=== PATIENT | male | born 1945 | race Caucasian/White ===

== ENCOUNTER 2017-04-26 13:52 | Observation (INO) | payer MEDICARE, BC ==
[~2017-04-26] VITALS: Ht 165.1 cm; Wt 75.0 kg
--- NOTE | ~2017-04-26 | HP ---
PATIENT'S NAME: BOO [facility] AGE: 72 Y [address] ROOM: [place] [address] LOCATION: GICU ADMIT DATE: 04/26/2017 History & Physical DISCHARGE DATE: FAMILY PHYSICIAN: MIHAI RITCHIE MD ATTENDING PHYSICIAN: CARMELLA POSADAS DATE OF SERVICE: CHIEF COMPLAINT: Syncope. HISTORY OF PRESENT ILLNESS: A 72-year-old very pleasant gentleman with past medical history of coronary artery disease with stenting done in the past by Dr. Major; also had mild early-onset dementia, followed by Dr. Carmona, was in [place] for an appointment with Dr. Carmona. He did not have any breakfast this morning and after that point, he went to get some breakfast. After the breakfast, he stood up and after 5 minutes, he had a syncopal episode which was witnessed. He was lowered down, so he did not fall and did not hit his head. He did lose consciousness at that point, which returned after about 30 seconds to 1 minute. He was brought to the emergency department. On my encounter, he is alert, oriented, and lying comfortably. He denied any headache, any trouble with the eyes, any chest pain along with this dizziness. He denied any diaphoresis, nausea, or vomiting. Currently, he is not having any chest pain, any shortness of breath, any abdominal pain, any burning on urination, or any extremity swelling. On further inquiry, it appears that he has not been drinking enough water in the last couple of days. He never had these kind of symptoms before. REVIEW OF SYSTEMS: All other systems reviewed were negative, except what is mentioned in the HPI. ALLERGIES: NO KNOWN DRUG ALLERGIES. PAST MEDICAL HISTORY: 1. Coronary artery disease. 2. Mild dementia. 3. Hypertension. MEDICATIONS: Medications are being reconciled right now. SOCIAL HISTORY: Never smoker. No alcohol or drug abuse. Retired. PATIENT'S NAME: BOO [facility] AGE: 72 Y [address] ROOM: [place] [address] LOCATION: GICU ADMIT DATE: 04/26/2017 History & Physical DISCHARGE DATE: FAMILY PHYSICIAN: MIHAI RITCHIE MD ATTENDING PHYSICIAN: CARMELLA POSADAS FAMILY HISTORY: Positive for coronary artery disease in dad, but no premature coronary artery disease. PHYSICAL EXAMINATION: VITAL SIGNS: Blood pressure 157/64, heart rate 46, respiratory rate of 12, afebrile. GENERAL: No acute distress. Alert and oriented x3. HEENT: Head: Atraumatic, normocephalic. Eyes: Nonicteric. No pallor. Oropharynx: Dry mucous membranes. CARDIOVASCULAR: S1, S2. No murmurs, gallops, or rubs. LUNGS: Clear to auscultation bilaterally. ABDOMEN: Soft, nontender, and nondistended. Bowel sounds are present. EXTREMITIES: No clubbing, cyanosis, or edema. NEUROLOGIC: Cranial nerves 2 through 12 intact. No motor or sensory deficits. PSYCHIATRIC: Normal affect, mood, and speech. MUSCULOSKELETAL: No muscle tenderness or joint swelling noted. ENDOCRINE: No lymphadenopathy, thyromegaly, or cushingoid features noted. LYMPHATIC: No lymphadenopathy noted. DIAGNOSTIC STUDIES: EKG done in the emergency department showed sinus bradycardia without acute ST- T wave changes. When compared to the previous EKG, he also had bradycardia at that point as well. Lab work was remarkable for sodium of 143, potassium of 3.8, and creatinine of 1.5. CBC was unremarkable. First set of troponins was negative. CT of the head was done, which was negative. ASSESSMENT AND PLAN: 1. Syncope. 2. Coronary artery disease. 3. Acute kidney injury. 4. Dementia. 5. Hypertension. 6. Hypokalemia. We are going to admit this patient for observation. His syncopal episode is PATIENT'S NAME: CORBIN HADDAD [facility] AGE: 72 Y [address] ROOM: [id number] [place] [id number] LOCATION: [facility] ADMIT DATE: 04/26/2017 History & Physical DISCHARGE DATE: FAMILY PHYSICIAN: MIHAI RITCHIE MD ATTENDING PHYSICIAN: CARMELLA POSADAS very consistent regarding dehydration as his orthostatic vitals were positive in the emergency department. He has already received 500 mL of normal saline. We are going to continue to hydrate him at this point. We are going to rule him out for ACS. Continue telemonitoring. His KRISHNA is also suggestive of dehydration, so we will monitor the creatinine once the hydration is done. Fall precautions for now. We will re-order the orthostatics and if stable, we will increase the activity to as tolerated and see his progress. If needed, we will involve Cardiology to figure out if the bradycardia is contributing to his syncopal episode. But again, I believe this is secondary to his dehydration. DVT prophylaxis: Early ambulation and SCDs. Diet: Low-sodium diet. We will follow this patient. MD ARIEL UNGER/piter /[id number] D: [id number] T: [id number] HISTORY & PHYSICAL
--- NOTE | ~2017-04-26 | ER ---
PATIENT'S NAME: CORBIN HADDAD [facility] AGE: 72 Y [address] ROOM: [place] [address] LOCATION: [facility] ADMIT DATE: 04/26/2017 ER/Outpatient Report DISCHARGE DATE: FAMILY PHYSICIAN: MIHAI RITCHIE MD ATTENDING PHYSICIAN: CARMELLA NARANJO TIME OF ARRIVAL: 1352 hours. TIME SEEN: 1352 hours. IDENTIFICATION: A 72-year-old male. CHIEF COMPLAINT: Syncopal episode. HISTORY OF PRESENT ILLNESS: The patient is a 72-year-old white male from [place], [place]. He was here for an appointment with Dr. Carmona this morning. He came fasting to the appointment with a followup for his dementia and afterwards they went to [place] and ate, when they got up to leave they saw some friends they knew from [place] and were talking with them while the was paying, and he had a syncopal episode. They lowered him to the seat so no fall or injury. He denies any chest pain. Currently, denies any problems. No lightheadedness or dizziness. No numbness or tingling. ALLERGIES: NO KNOWN DRUG ALLERGIES. CURRENT MEDICATIONS: 1. Levothyroxine 75 mcg daily. 2. Amlodipine 5 mg daily. 3. Tamsulosin 0.4 mg daily. 4. Memantine 10 mg b.i.d. 5. Baby aspirin daily. 6. Benefiber 1 rounded tablespoon daily. 7. Fluticasone nasal spray 2 sprays to each nostril daily. 8. Atorvastatin 10 mg at h.s. 9. Aricept 10 mg at h.s. 10. Zyrtec. 11. MiraLAX 1 capful every 3rd day and Colace 100 mg the other 2 days. 12. Vitamin E 1000 international units 3 times daily. 13. Fish oil 1000 mg 4 times daily. PATIENT'S NAME: BOO [facility] AGE: 72 Y [address] ROOM: [id number] [place] [id number] LOCATION: [facility] ADMIT DATE: 04/26/2017 ER/Outpatient Report DISCHARGE DATE: FAMILY PHYSICIAN: MIHAI RITCHIE MD ATTENDING PHYSICIAN: CARMELLA NARANJO MEDICAL PROBLEMS: Coronary artery disease, status post stent in 2007, hypertension, and dementia. FAMILY HISTORY: No pertinent family history. SOCIAL HISTORY: The patient lives in [place] with his . 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 Tobacco use, denies. Alcohol use, denies. Drug use, denies. REVIEW OF SYSTEMS: All systems reviewed and negative other than what is noted in the HPI. PHYSICAL EXAMINATION: VITAL SIGNS: Weight 79 kg. Blood pressure 140/70, pulse 54, respirations 14, temp 98.1, and sats 93% on room air. GENERAL: A 72-year-old male in no acute distress. HEENT: Head: Normocephalic, atraumatic. Eyes: Pupils equal and reactive to light and accommodation. Extraocular movements intact. Nose: Mucosa pink. No lesions or drainage. Mouth: No lesions. Pharynx benign. NECK: Supple. No lymphadenopathy. No thyromegaly. No JVD. No carotid bruits. LUNGS: Clear to auscultation. HEART: Sinus bradycardia. No murmur, rub, or gallop. ABDOMEN: Bowel sounds present. Soft, nondistended. No hepatosplenomegaly. No palpable masses. Nontender. SKIN: [place], warm, and dry. No lesions or rashes noted. NEURO: Alert and oriented to person and place. Cranial nerves 2 through 12 are grossly intact. Motor strength 5/5 throughout. Sensation is intact to light touch. The patient does not know the month or the year, he does know his age, and he is able to answer most questions. EMERGENCY DEPARTMENT COURSE: Orthostatic blood pressures were checked and are 147/71, pulse 49, standing 106/71, pulse 79, and he was lightheaded with this. He was given a 500 mL fluid bolus, blood pressure was then 137/64, heart rate 44, and then blood pressure when standing 135/60, heart rate 56, and he was not lightheaded. He did remain bradycardic throughout his stay here in the emergency room ranging 40 to 50 mostly 45 throughout his stay. He is not on a beta-neymar to explain the bradycardia. EKG sinus bradycardia, 45 beats per minute. No acute ST-elevation or depression. Hemoglobin 13.9, hematocrit 39.5, platelets 144, white count 4.4, normal differential. Sodium 142, potassium 3.6, chloride 108, CO2 25, BUN 20, creatinine 1.5, and blood sugar 127. Liver PATIENT'S NAME: CORBIN HADDAD [facility] AGE: 72 Y [address] [id number] [address] LOCATION: [facility] ADMIT DATE: 04/26/2017 ER/Outpatient Report DISCHARGE DATE: FAMILY PHYSICIAN: MIHAI RITCHIE MD ATTENDING PHYSICIAN: CARMELLA NARANJO enzymes normal. Magnesium 2.3, CPK 95, CK-MB 1.7, troponin I less than 0.010. Prehospital EKG also revealed a sinus bradycardia at 55 beats per minute. Chest x-ray, no acute process, pending Radiology over-read. IMPRESSION: 1. Syncopal episode. 2. Bradycardia. 3. Dementia. 4. Coronary artery disease. 5. Orthostatic hypotension improved with fluid bolus. 6. Thrombocytopenia, mild. 7. Acute kidney injury. PLAN: The patient was seen by Dr. Naranjo and will be admitted. DANO AGARWAL MD CAR/modl /[id number] d: 04/26/17 2331 t: 04/29/17 0750, OUTPATIENT REPORT
[2017-04-26 14:30] LABS: BASOPHIL % 0.9 %; EOSINOPHIL # 0.1 K/uL (0.0-0.5); EOSINOPHIL % 2.8 %; HEMATOCRIT 39.5 % (37.0-53.0); HEMOGLOBIN 13.9 g/dL (11.0-16.0); IMMATURE GRANULOCYTE % 0.2 %; LYMPHOCYTE # 1.6 K/uL (0.8-4.0); LYMPHOCYTE % 36.1 %; MCH 33.2 pg (27.0-34.0); MCHC 35.2 gm/dL (32.0-36.5); MCV 94.3 fl (83.0-98.0); MONOCYTE # 0.4 K/uL (0.0-1.0); MONOCYTE % 8.7 %; MPV 8.8 fl (9.4-12.4); NEUTROPHIL # (ANC) 2.2 K/uL (1.4-9.0); NEUTROPHIL % 51.3 %; NRBC % 0 /100WBC (0-0.00); PLATELET COUNT 144 K/uL (150-450); RBC 4.19 M/uL (3.50-5.50); RDW-CV 11.6 % (11.9-14.6); WBC 4.4 K/uL (4.0-11.0)
[2017-04-26 14:40] LABS: INR - (THERAPEUTIC) 1.03 (0.92-1.07); PROTIME 10.8 SECONDS (9.8-11.4); PTT 23 SECONDS (25-32)
[2017-04-26 14:49] LABS: ALBUMIN 3.8 gm/dL (3.5-5.0); ALK PHOS 65 IU/L (33-138); ALT 17 IU/L (12-78); ANION GAP 12.6 (10.0-19.0); AST 21 IU/L (10-40); BLOOD UREA NITROGEN 20 mg/dL (6-24); CALCIUM 8.9 mg/dL (8.5-10.5); CHLORIDE 108 mMol/L (96-110); CO2 25 mMol/L (22-32); CPK 95 IU/L (35-332); CREATININE 1.5 mg/dL (0.6-1.3); ESTIMATED GFR (MDRD EQUATION) 46; MAGNESIUM 2.3 mg/dL (1.8-2.6); POTASSIUM 3.6 mMol/L (3.7-5.1); SODIUM 142 mMol/L (135-145); TOTAL BILIRUBIN 1.2 mg/dL (0.0-1.5); TOTAL PROTEIN 7.2 g/dL (6.0-8.4)
[2017-04-26] MEDS ORDERED: LEVOTHROID(SYN75 MCG PO (17:53)
[2017-04-26] MEDS ORDERED: NAMENDA10 MG PO (17:54)
[2017-04-26] MEDS ORDERED: ARICEPT10 MG PO (17:54)
[2017-04-26] MEDS ORDERED: MOTRIN800 MG PO (17:55)
[2017-04-26] MEDS ORDERED: LIPITOR10 MG PO (17:55)
[2017-04-26] MEDS ORDERED: NORVASC5 MG PO (17:55)
[2017-04-26] MEDS ORDERED: FLOMAX0.4 MG PO (17:56)
[2017-04-26] MEDS ORDERED: ASPIRIN (CHILDR81 MG PO (17:56)
[2017-04-26] MEDS ORDERED: FLONASE 50 MCG/16 GM NOSE (17:57)
[2017-04-26] MEDS ORDERED: ZYRTEC10 MG PO (17:57)
[2017-04-26] MEDS ORDERED: FISH OIL 1,0001 EAC4 PO (17:58)
[2017-04-26] MEDS ORDERED: VITAMIN E400 UNI2 PO (17:58)
--- NOTE | 2017-04-26 20:21 | NUR ---
Patient is a 72 year old male with no known allergies. He is a full code. With a past medical history of an AL with stent in 2007. He also has dementia. He was at [facility] when he got up and became lightheaded. The stated he turned completely white. They were able to get him seated before he fell. He did not lose any level of consciousness. He then became confused and was "not making sense". EMS brought him to [facility]. He was evaluated in the ED and brought up to NTU at 1740. He is observation status. He came up to the floor with an IV in his right forearm running Normal Saline.
--- NOTE | 2017-04-27 02:10 | NUR ---
Significant Event: PATIENT IS A/OX3. FORGETFUL AT TIMES. DENIES N/T. MOVES ALL EXTREMITIES SPONTANEOUSLY AND TO COMMAND. NO COMPLAINTS OF HEADACHE, DIZZINESS, OR LIGHTHEADEDNESS. IV TO RIGHT FOREARM INFUSING LR AT 150ML/HR. UP 1 ASSIST GB. VSS ON ROOM AIR. LUNGS CLEAR AND DIMINSHED. NO SKIN ISSUES. NO EDEMA. NO COMPLAINTS OF PAIN. GAVE 40MEQ OF PO POTASSIUM. OBSERVATION STATUS. TRANSFERRED CARES MARCELO BASS RN TO AT 211. Follow up:
[2017-04-27 03:43] LABS: EOSINOPHIL # 0.1 K/uL (0.0-0.5); EOSINOPHIL % 3.3 %; HEMATOCRIT 36.4 % (37.0-53.0); HEMOGLOBIN 12.5 g/dL (11.0-16.0); LYMPHOCYTE # 1.2 K/uL (0.8-4.0); LYMPHOCYTE % 30.8 %; MCH 32.4 pg (27.0-34.0); MCHC 34.3 gm/dL (32.0-36.5); MCV 94.3 fl (83.0-98.0); MONOCYTE # 0.5 K/uL (0.0-1.0); NEUTROPHIL # (ANC) 2.1 K/uL (1.4-9.0); NEUTROPHIL % 52.9 %; NRBC % 0 /100WBC (0-0.00); PLATELET COUNT 140 K/uL (150-450); RBC 3.86 M/uL (3.50-5.50); RDW-CV 11.8 % (11.9-14.6); WBC 3.9 K/uL (4.0-11.0)
[2017-04-27 04:05] LABS: ANION GAP 9.2 (10.0-19.0); CALCIUM 8.6 mg/dL (8.5-10.5); CREATININE 1.2 mg/dL (0.6-1.3); POTASSIUM 4.2 mMol/L (3.7-5.1)
--- NOTE | 2017-04-27 05:36 | NUR ---
Significant Event: Follow up:PATIENT A/O X3, MEX4, GOOD OUTPUT, LUNGS CLEAR, ORTHOSTATIC B/P COMPLETED
--- NOTE | 2017-04-27 12:27 | NUR ---
Significant Event: PATIENT A/O, DENIES PAIN OR DISCOMFORT. VSS. LS CLEAR, SPO2 >90% ON RA. BRADYCARDIC AT TIMES, STATES THIS IS NORMAL FOR THE PATIENT. CONTINENT OF B/B, VOIDS PER TOILET, STAND BY ASSIST FOR TRANSFERS, GAIT STEADY. NO C/O LIGHTHEADEDNESS ON STANDING OR SITTING. GOOD APPETITE. DISCHARGED HOME WITH AT 1212PM VIA FAMILY VEHICLE. DISCHARGE INSTRUCTIONS GIVEN TO PATIENT ET , BOTH STATE UNDERSTANDING.
== END 2017-04-27 12:15 | disposition disaster alternative care site (69) ==
LOC: GMED 13:52 → GICU 17:03
PROVIDERS: Family Medicine; ADMIT Internal Medicine
DX: I95.1 Orthostatic hypotension (principal); E86.0 Dehydration; N17.9 Acute kidney failure, unspecified; E87.6 Hypokalemia; I10 Essential (primary) hypertension; I25.10 Atherosclerotic heart disease of native coronary artery without angina pectoris; F03.90 Unspecified dementia, unspecified severity, without behavioral disturbance, psychotic disturbance, mood disturbance, and anxiety; Z79.899 Other long term (current) drug therapy; Z79.82 Long term (current) use of aspirin; Z95.5 Presence of coronary angioplasty implant and graft
CPT/HCPCS: G0378; J7030; J7120

== ENCOUNTER → 2017-04-26 | Outpatient (CLI) | payer MEDICARE, BC ==
[~2017-04-26] MED LIST: ARICEPT10 MG PO; ASPIRIN (CHILDR81 MG PO; FISH OIL 1,0001 EAC4 PO; FLOMAX0.4 MG PO; FLONASE 50 MCG/16 GM NOSE; LEVOTHROID(SYN75 MCG PO; LIPITOR10 MG PO; MOTRIN800 MG PO; NAMENDA10 MG PO; NORVASC5 MG PO; VITAMIN E400 UNI2 PO; ZYRTEC10 MG PO
== END | disposition disaster alternative care site (69) ==
LOC: GAMB 13:33
DX: R55 Syncope and collapse (principal); G30.9 Alzheimer's disease, unspecified; F02.80 Dementia in other diseases classified elsewhere, unspecified severity, without behavioral disturbance, psychotic disturbance, mood disturbance, and anxiety; R42 Dizziness and giddiness; Z79.899 Other long term (current) drug therapy
CPT/HCPCS: A0425; A0427